=== PATIENT | male | born 1985 | race Caucasian/White ===

== ENCOUNTER 2019-09-14 05:18 | Emergency (ER) | payer OTHER ==
[~2019-09-14] VITALS: Ht 177.8 cm; Wt 106.1 kg
[2019-09-14 05:20] VITALS: BP 114/79
--- NOTE | 2019-09-14 05:22 | NUR ---
PT TAKEN TO BED 12
--- NOTE | 2019-09-14 05:29 | NUR ---
Dr. Jones examining patient.
--- NOTE | 2019-09-14 05:29 | NUR ---
PT C/O LIGHTHEADEDNESS AND CHILLS X2 DAYS. DENIES FEVER, PT AFEBRILE AT THIS TIME. PT C/O NAUSEA, DENIES VOMITING AND DIARRHEA. NO C/O ABD PAIN. RR EVEN AND UNLABORED. PT CALM AND PLEASANT POSITIONED COMFORTABLY, BED LOCKED AND IN LOW POSITION. VSS. MEDHX: DENIES ALLERGIES: DENIES
[2019-09-14] MEDS ORDERED: IBUPROFEN 800 MG TAB PO ONE (05:35)
--- NOTE | 2019-09-14 05:37 | NUR ---
FLU SWAB COLLECTED AND WALKED TO LAB.
[2019-09-14 06:21] VITALS: BP 114/79
== END 2019-09-14 06:21 | disposition home or self-care (01) ==
LOC: MED 05:18
DX: B34.9 Viral infection, unspecified (principal)
CPT/HCPCS: 87804; 99283